=== PATIENT | male | born 1980 | race Hispanic/Latino ===

== ENCOUNTER 2017-10-23 20:04 | Emergency (ER) | payer SELFPAY | END 2017-10-23 20:32 | disposition home or self-care (01) | LOC: NAV ERS 20:04 | DX: J02.9 Acute pharyngitis, unspecified (principal) | CPT/HCPCS: 99282 ==

== ENCOUNTER 2018-04-03 20:10 | Emergency (ER) | payer SELFPAY ==
[2018-04-03] MEDS ORDERED: Ondansetron ODT 4 MG TAB ONE (20:47)
== END 2018-04-03 20:53 | disposition home or self-care (01) ==
LOC: NAV ERS 20:10
DX: K52.9 Noninfective gastroenteritis and colitis, unspecified (principal)
CPT/HCPCS: 87081; 87430; 99284; Q0162